=== PATIENT | male | born 1995 | race Native Hawaiian/Other Pacific Islander ===

== ENCOUNTER 2016-09-23 11:51 | Emergency (ER) | payer OTHER ==
[~2016-09-23] VITALS: Ht 182.9 cm; Wt 67.3 kg
[2016-09-23 11:53] VITALS: BP 109/69; PULSE 71; RESP 15; O2SAT 100
[2016-09-23 12:41] LABS: BASOPHILS % (AUTO) 0.2 % (0-3); EOSINOPHILS % (AUTO) 1.2 % (0-5); MONOCYTES % (AUTO) 8.5 % (4-12); Mean Corpuscular Hemoglobin 29.7 pg (27.0-35.0); Mean Corpuscular Volume 87.9 fL (81-100); NEUTROPHILS % (AUTO) 79.5 % (40-74); Platelet Count 322 bil/L (150-400)
[2016-09-23 13:05] LABS: Magnesium 2.1 mg/dL (1.6-2.6)
--- NOTE | 2016-09-23 13:48 | ED.REPORT ---
HPI-General Illness Date of Service September 23, 2016 ED Provider: Anders Snider PA-C Farooq is a otherwise healthy 29-year-old male presenting with chief complaint of rib pain. Patient complains of a two-week history of insidious onset pain in his ribs, upper chest, left scapula radiating to his left shoulder. Reports the pain is intermittent, sometimes resolving completely but aggravated by moving, yawning, deep inspiration, lying down. Admits smoking. Denies trauma, fever, unintentional weight loss, cough, wheeze, shortness of breath, abdominal pain, vomiting, diarrhea, melena, hematochezia, urinary symptoms, back pain, limited range of motion the shoulder. Denies family history of heart attack, personal history of heart disease, use of cocaine, methamphetamine, hypertension, diabetes, hyperlipidemia. Nursing Notes Stated Complaint: ABDOMINAL PAIN Chief Complaint: Male Abdominal Pain Nursing Notes Reviewed: Yes Allergies: Coded Allergies: No Known Allergies (Unverified , 09/23/16) Scheduled PRN Cyclobenzaprine (Cyclobenzaprine) 5 Mg Tablet 5-10 MG PO HS PRN PRN Spasm General Time Seen by MD: 13:29 Chief Complaint Other (rib pain) Past Medical History Past Medical History Denies Review of Systems General: Denies fever, chills, malaise. HEENT: Denies congestion, headache, sore throat. Respiratory: Denies dyspnea, cough, shortness of breath, wheezing. Cardiovascular: Denies chest pain, palpitations. Gastrointestinal: Denies vomiting, diarrhea, abdominal pain. Genitourinary: Denies frequency, urgency, dysuria, hematuria. Otherwise as noted in HPI. Physical Exam General: Well appearing, well developed, well nourished, no acute distress. Chest: Normal to inspection, mild tenderness to palpation over upper ribs ( approximately 4-5) Back: Normal to inspection, mild left CVA tenderness to percussion. Otherwise nontender. Head: Atraumatic, normocephalic. Eyes: No scleral icterus or injection. No discharge. Vision grossly intact. ENT: Voice clear, hearing grossly intact. Respiratory: Regular rate and rhythm. Breath sounds present, clear to auscultation and equal bilaterally in all bartholomew. No respiratory distress. No increased work of breathing, speaks in complete sentences. Cardiovascular: Regular rate and rhythm, without murmur, gallop or rub. No pedal edema. Gastrointestinal: Abdomen flat and non-tender without guarding or rebound. Bowel sounds normoactive. Negative hepatosplenomegaly. Skin: Warm and dry. Neurological: Grossly nonfocal. Psychological: Alert and oriented. Speech appropriate, linear and logical. Behavior appropriate. Vital Signs Vital Signs Date Time Temp Pulse Resp B/P Pulse Ox O2 Delivery O2 Flow Rate FiO2 09/23/16 11:53 36.6 71 15 109/69 100 Room Air Interpretation & Diagnostics Lab Results Interpretation Result Diagram: 09/23/16 1230 09/23/16 1230 Test 09/23/16 12:30 09/23/16 13:50 09/23/16 14:02 White Blood Count 10.7th/mm3 (3.8-10.1) Red Blood Count 4.62mil/mm3 (4.40-5.80) Hemoglobin 13.7g/dL (13.8-17.2) Hematocrit 40.6% (41.0-50.0) Mean Corpuscular Volume 87.9fL (81-100) Mean Corpuscular Hemoglobin 29.7pg (27.0-35.0) Mean Corpuscular Hemoglobin Concent 33.7% (32.0-37.0) Red Cell Distribution Width 12.2% (12.3-15.4) Platelet Count 322bil/L (150-400) Neutrophils (%) (Auto) 79.5% (40-74) Lymphocytes (%) (Auto) 10.2% (14-46) Monocytes (%) (Auto) 8.5% (4-12) Eosinophils (%) (Auto) 1.2% (0-5) Basophils (%) (Auto) 0.2% (0-3) Sodium Level 138mEq/L (134-144) Potassium Level 4.0mEq/L (3.5-5.2) Chloride Level 100mEq/L (97-108) Carbon Dioxide Level 25mmol/L (18-29) Blood Urea Nitrogen 11mg/dL (6-20) Creatinine 0.89mg/dL (0.76-1.27) Estimat Glomerular Filtration Rate 115mL/min (>59) Glucose Level 95mg/dL (60-99) Calcium Level 10.1mg/dL (8.5-10.1) Magnesium Level 2.1mg/dL (1.6-2.6) Total Bilirubin 0.3mg/dL (0.0-1.2) Aspartate Amino Transf (AST/SGOT) 18U/L (0-50) Alanine Aminotransferase (ALT/SGPT) 13U/L (0-44) Alkaline Phosphatase 62U/L (25-150) Total Protein 8.0g/dL (6.4-8.4) Albumin 4.0g/dL (3.4-5.0) Lipase 18U/L (13-60) Hold [place] Top Tube Received (Received) Hold Urine Received (Received) Urine Color Yellow (YELLOW) Urine Appearance Clear (CLEAR,HAZY) Urine pH 6.5 (5.0-8.0) Urine Specific [place] 1.020 (1.003-1.035) Urine Protein Negativemg/dL (NEG,TRACE) Urine Glucose (UA) Negativemg/dL (NEGATIVE) Urine Ketones Negativemg/dL (NEGATIVE) Urine Occult Blood Negative (NEGATIVE) Urine Nitrite Negative (NEGATIVE) Urine Bilirubin Negative (NEGATIVE) Urine Urobilinogen Normalmg/dL (NORMAL) Urine Leukocyte Esterase Negative (NEGATIVE) Urine RBC 0-2/hpf (0-2) Urine WBC 0-5/hpf (0-5) Urine Epithelial Cells Occasional/hpf (NONE-MOD) Urine Crystals None seen (NONE SEEN) Urine Bacteria None/hpf (NONE-FEW) Urine Hyaline Casts None/lpf (NONE) Urine Granular Casts None seen (NONE SEEN) Urine Waxy Casts None seen (NONE SEEN) Urine Red Blood Cell Casts None seen (NONE SEEN) Urine White Blood Cell Casts None seen (NONE SEEN) Urine Mucus None seen (None Seen) Urine Trichomonas None seen (NONE SEEN) Urine Yeast None (NONE SEEN) Urinalysis Comment None Urine Culture Reflexed Not indicated Re-Eval/Medical Decision Med Decision/Clinical Course Otherwise healthy 29-year-old male presents the chief complaint of rib and abdominal pain that began insidiously about 2 weeks ago. Complains of pain in his anterior lower and upper ribs as well as scapula and radiating to his left shoulder. Also complains of a crampy sensation in his left upper quadrant. Pain is aggravated by moving, vomiting, deep inspiration, lying down. Denies other symptoms, pertinent history. Physical examination is benign with clear lung sounds, soft abdomen and some mild tenderness to palpation in the right upper anterior chest. Patient states that this reproduces his pain. Follow it and I see it, the patient's nurse witnessed what appeared to be a muscle spasm in his left upper quadrant abdominal muscles. Mild CVA tenderness to percussion on the left side. CBC and CMP are unremarkable with extremely mild leukocytosis and anemia which I do not find to be clinically pertinent. Lipase is normal. Vital signs are normal. Urinalysis is normal. This is unlikely to be cardiac event as the presentation would be highly atypical, patient is young with a paucity of risk factors. I doubt this is a respiratory issue as pneumonia, PE or pneumothorax as he is saturating well, has no respiratory symptoms. No history to indicate trauma. Physical and Labs are reassuring against pancreatitis, perforation, cholecystitis, pyelonephritis. Urinalysis gives no indication of infection or kidney stone. At this point I am reassured this is unlikely to be caused by immediately dangerous condition and believe this is most likely musculoskeletal. I believe he is stable and safe to be discharged. Advised [id number] analgesia, provided a small amount of cyclobenzaprine to treat muscle spasms at the patient 's request, provided primary care follow-up referral, advised emergent return precautions. Patient verbalizes understanding of and consented to the plan. Discharge & Departure Primary Impression: Left-sided chest wall pain Disposition: Home Discharge Condition All VS Reviewed: Yes Condition: Stable Additional Instructions: Evaluation for rib and abdomen pain in the emergency department consists of history, physical examination, urinalysis and blood work, all of which are reassuring that this is unlikely to be caused by an immediately dangerous condition such as a heart attack, pneumonia or blood clot in your lungs. I believe you are stable and safe to be discharged to home. The pain is best treated with 800 mg of ibuprofen (Advil, Motrin) every 6 hours , or 1000 mg of acetaminophen (Tylenol) every 6 hours. These drugs can be taken at the same time for more severe pain. Emergency prescription for a small amount of cyclobenzaprine to help with the muscle spasms in your abdomen. Do not drive or drink alcohol when taking this medication. I will provide you with a referral for a primary care provider. Please contact them to establish care and follow-up. Return to emergency department for any new or worsening symptoms including increasing or changing chest pain, difficulty breathing or shortness of breath, fever, abdominal pain. Referrals: [facility] EDSupervising Provider for APC: Angel Barber MD copies to: [facility] Anders Snider PA-C September 23, 2016 13:48
[2016-09-23 14:15] LABS: APPEARANCE,URINE CLEAR (CLEAR,HAZY); COLOR,URINE YELLOW (YELLOW); OCCULT BLOOD,URINE NEGATIVE (NEGATIVE); PH,URINE 6.5 (5.0-8.0)
[2016-09-23 14:16] LABS: UROBILINOGEN,URINE NORMAL (NORMAL)
[2016-09-23] MEDS ORDERED: CYCL5TAB PO (14:42)
[2016-09-24] MEDS ORDERED: IBUP800T28 PO (11:29)
[2016-09-24] MEDS ORDERED: AZIT250T4 PO (11:29)
[2016-09-24] MEDS ORDERED: HYDR-4003 PO (11:29)
== END 2016-09-23 14:44 | disposition home or self-care (01) ==
LOC: SED 11:51
DX: R07.89 Other chest pain (principal); F17.200 Nicotine dependence, unspecified, uncomplicated
CPT/HCPCS: 36415; 80053; 81000; 83690; 83735; 85025; 96372; 99284; J1885

== ENCOUNTER 2016-09-24 07:11 | Emergency (ER) | payer OTHER ==
[~2016-09-24] VITALS: Ht 182.9 cm; Wt 67.3 kg
[~2016-09-24 07:11] MED LIST: CYCL5TAB PO
[2016-09-24 07:15] VITALS: BP 141/82; PULSE 122; RESP 24; O2SAT 99
--- NOTE | 2016-09-24 08:16 | ED.REPORT ---
HPI-Chest Pain Under 40 Date of Service September 24, 2016 ED Provider: Blas Begum MD The patient is a 21 year old male who presents to the ED due to intermittent left chest pain over the past 2 weeks and increasing in duration and severity over the past 4 days. The pain starts in left mid-thoracic, moves up into his left chest and radiates into his back. He woke up this morning yelling in pain. Walking brings the pain to a 10/10 and deep breathing exacerbates his symptoms as well. C/o associated chills and diaphoresis. On Thursday he went to a clinic, the doctor told him it was gas. His symptoms have not resolved. Went to [facility] yesterday, all his urine and labs were normal. given muscle spasm. no acute findings Nothing helped his symptoms. He denies fever, cough, asthma, dyspnea, SOB, and LE edema. Nursing Notes Stated Complaint: EXCRUCIATING PAIN IN SIDE Chief Complaint: Chest Pain-Non Cardiac Nature Nursing Notes Reviewed: Yes (Shake, [employer] not reconciled) Allergies: Coded Allergies: No Known Allergies (Unverified , 09/23/16) Scheduled Azithromycin (Zithromax (Z-Hernandez)) 250 Mg Tablet 250 MG PO DIRECTED Take two tablets by mouth on day 1, then take one tablet daily on days 2 through 5. Scheduled PRN Cyclobenzaprine (Cyclobenzaprine) 5 Mg Tablet 5-10 MG PO HS PRN PRN Spasm Hydrocodone-Acetaminophen 5-325 mg (Hydrocodone-Acetaminophen 5-325 mg) 1 Each Tablet 1-2 TABLET PO TID PRN PRN For Pain Ibuprofen (Ibuprofen) 800 Mg Tablet 800 MG PO TID PRN PRN For Pain General Time Seen by MD: 08:01 Chief Complaint Chest pain Hx Obtained From: Patient Arrived By: Walk-in Sudden in Onset?: Yes Onset Occurred: More than a week ago... (2 weeks) Symptom Duration: Since onset Location: : Chest left Quality: Painful Severity: Current: Mild Recent Healthcare: Recent doctor visit Similar Sx Previous: Yes Past Medical History Past Medical History Notes: Patient seen yesterday in emergency department for left-sided chest pain Past Medical History Denies Past Surgical History denies Family History family hx of cancer Smoking History Current Every Day Smoker Social History Other Social History: Good social support, Local resident Ambulatory Status Independent Review of Systems Constitutional: Reports: Chills, Denies: Fever Cardiovascular: Reports: Chest pain GI: Denies: Nausea, Vomiting Musculoskeletal: Reports: Thoracic pain, Denies: Extremity swelling Skin: Reports Diaphoresis Complete sys rev & neg: except as marked. Physical Exam Initial Vital Signs Vital Signs (First) Date Time Temp Pulse Resp B/P Pulse Ox O2 Delivery O2 Flow Rate FiO2 09/24/16 07:15 37.4 122 24 141/82 99 Room Air Initial VS: Reviewed, Vital signs abnormal General/Constitutional: Awake, Alert, Cooperative thin fit Respiratory / Chest: Atraumatic, Breath sounds NL, Breath sounds = bilat, No respiratory distress pleuritic discomfort but lungs are clear no crepitus no zoster Cardiovascular: Heart rate NL, Regular rhythm, Heart sounds NL Abdomen: Soft, Non-tender Lower Extremity / Pelvis / MS: Atraumatic, Full range of motion, No deformity Skin: Warm, Dry Neurologic: Oriented X3, Speech NL, No motor deficits Head / Eyes: Normocephalic, PERRL, EOMI Upper Extremity / MS: Atraumatic, Full range of motion, No deformity Wrist / Hand: Atraumatic, Full range of motion, No deformity Interpretation & Diagnostics Interpretation & Diagnostics: ANGIOGRAPHY CT IMPRESSION: 1. No evidence of pulmonary embolism. 2. Left lower lobe medial consolidation compatible with pneumonia. A dense fluid collection is demonstrated within the consolidated lung suspicious for a small abscess. Consider followup to demonstrate resolution. 3. Small left pleural effusion compatible with a parapneumonic effusion. Dictated by: Marko Solis M.D. on 09/24/2016 at 10:10 Approved by: Marko Solis M.D. on 09/24/2016 at 10:26 Lab Results Interpretation Test 09/24/16 08:45 Hold Purple Top Tube Received (Received) Hold Blue Top Tube Received (Received) Hold [place] Top Tube Received (Received) Hold [place] Top Tube Received (Received) Lab Results Interpretation: blood work from yesterday reviewed, not repeated ECG Interpretation ECG Interpretation: EKG demonstrated normal sinus rhythm at a rate of 94, no ischemic or dysrhythmic changes, no prior EKG available for comparison (tachycardia identified at triage no longer present) Time: 08:16 Interpreted by: ED physician X-Ray Chest Interpretation Chest Xray Interpretation: IMPRESSION: Mild or early retrocardiac left lower lobe pneumonia. Dictated by: Justin Diana M.D. on 09/24/2016 at 8:22 Approved by: Justin Diana M.D. on 09/24/2016 at 8:23 View: Portable Interpretation / Wet Read by: Interpret - Radiologist Re-Eval/Medical Decision Med Decision/Clinical Course This is a previously healthy 21-year-old male presents with several days of worsening left pleuritic chest discomfort. He was seen yesterday in the emergency department, thought they have a chest wall muscle strain, reports symptoms are worsening. Reports pain was more severe. He denies fever cough. He reports a significant pleuritic discomfort. Her trauma, pneumothorax, and no risk factors for PE are evident on this evaluation. She has normal vitals, but does appear uncomfortable. Lungs are clear, no chest x-rays negative for pneumothorax or personal pathology. Severity pain, multiple visits high fevers been seen in urgent care, seen yesterday in her department, at this point CT imaging was pursued and was negative for PE, but is suggestive of a lower lobe infiltrate. The patient's blood work had yesterday revealed no leukocytosis, is young and healthy son not finding indication for blood cultures, but empiric treatment is being started. He received a dose of ceftriaxone and Zithromax. He is being discharged in NSAID, Zithromax and some when necessary hydrocodone. Work note has been provided. Routine and return precautions are reviewed. Patient's discharge in improved condition Source of Hx: Old records Differential Diagnosis: Positive: Chest pain, acute, Pleurisy, Pneumonia, Negative: Acute coronary syndrome, Dysrhythmia, Esophageal rupture, Gun shot wound chest, Siomara-Lugo syndrome, Pneumomediastinum, Pulmonary edema, Stab wound chest, Stable angina Counseled Regarding: Diagnosis, Lab results, Need for follow-up, When/why to return to ED Discharge & Departure Primary Impression: Pneumonia Pneumonia type: due to unspecified organism Laterality: unspecified laterality Lung location: unspecified part of lung Qualified Code: J18.9 - Pneumonia, unspecified organism Disposition: Home Discharge Condition All VS Reviewed: Yes Condition: Stable Additional Instructions: 1. Your CT scan reveals that you have developed a small left lower lobe pneumonia, on a position that is sitting next to the "pleura" - which is where the rich network of nerves are - and that causes this type of "pleuritic" pain which is worse with inspiration. 2. You received an injection of the antibiotic ceftriaxone and an oral dose of the antibiotic azithromycin. 3. You will need to continue a 5 day course of azithromycin as prescribed, with a next dose tomorrow. 4. Continue ibuprofen 800 mg 3 times a day with food for pain. Medicine also helps with the inflammation. It is very important to take. 5. If needed for more severe pain take hydrocodone/APAP 5/325 1-2 tabs up to three times a day. Try to use sparingly. Note: This medication contains Tylenol and a narcotic. It does cause some drowsiness, no driving for at least 4-6 hours after taking. 6. Symptoms should improve and resolve over the next several weeks. Return again if new or worsening symptoms. Referrals: [facility] (PCP) [facility] Scribe Attestation Portion of this note were transcribed by Mer Jackson. I, Dr. Begum, personally performed the history, physical exam, and medical decision-making: I reviewed and confirmed the accuracy for the information in the transcribed note. Signed by: zeus Carlin, 09/24/16 1000 copies to: [facility] Blas Begum MD September 24, 2016 08:16 Mer Jackson September 24, 2016 08:34
--- NOTE | 2016-09-24 08:24 | DRSVH ---
PROCEDURE: X-RAY CHEST, TWO VIEWS ([id number]) INDICATIONS: CHEST PAIN TECHNIQUE: 2 views of the chest were acquired. COMPARISON: None. FINDINGS: Surgical changes and devices: None. Lungs and pleura: No pleural effusions or pneumothorax. Lungs are clear on the right but there is a mild or early pneumonia at the retrocardiac left lower lobe. Mediastinum: Mediastinal contours are normal. Heart size is normal. Bones and chest wall: No suspicious bony abnormalities. Soft tissues appear unremarkable. IMPRESSION: Mild or early retrocardiac left lower lobe pneumonia. Dictated by: Justin Diana M.D. on 09/24/2016 at 8:22 Approved by: Justin Diana M.D. on 09/24/2016 at 8:23
[2016-09-24] MEDS ORDERED: Ondansetron 2 mg/mL 2 mL Inj IVPUSH ONE (08:35)
[2016-09-24] MEDS: HYDROmorphone 0.5 mg/0.5 mL iSecure Syringe IVPUSH PRN ×3 (08:59→12:30)
--- NOTE | 2016-09-24 10:27 | DRSVH ---
PROCEDURE: CT ANGIO CHEST PULMONARY EMBOLISM ([id number]) INDICATIONS: pleuritic CP, tachycardia TECHNIQUE: After the administration of intravenous contrast, 2 mm thick sections acquired from the pulmonary api abilio to the posterior costophrenic angles. 3-dimensional maximum intensity projection (MIP) coronal a nd sagittal reformats were then acquired through the thorax. For radiation dose reduction, the follo wing was used: automated exposure control, adjustment of mA and/or kV according to patient size. COMPARISON: [facility], CR, XR CHEST 2VW, 09/24/2016, 7:37. FINDINGS: Image quality: Excellent. Pulmonary arteries: Pulmonary arteries are normal in size, and demonstrate no intraluminal filling d efects to suggest central pulmonary embolism. Lungs and pleura: There is a small left pleural effusion. Medial consolidation is demonstrated in th e left lower lobe. Within the consolidated lung, there is a rounded dense fluid collection measuring approximately 2.3 x 2.2 cm in transverse dimension Central and peripheral airways are patent. Mediastinum: Heart size is normal, without pericardial effusion. No mediastinal or hilar adenopathy . There is a small amount of residual thymic tissue in the anterior mediastinum. Thoracic aorta is normal in caliber and enhancement. Esophagus is normal in caliber, without hiatal hernia. Bones and chest wall: No suspicious bony lesions. Ribs and thoracic spine appear intact throughout. The visualized thyroid demonstrates no discrete nodules. No axillary or supraclavicular adenopathy . Abdomen: Visualized upper abdominal solid organs appear normal in the early arterial phase of enhanc ement. IMPRESSION: 1. No evidence of pulmonary embolism. 2. Left lower lobe medial consolidation compatible with pneumonia. A dense fluid collection is demo nstrated within the consolidated lung suspicious for a small abscess. Consider followup to demonstra te resolution. 3. Small left pleural effusion compatible with a parapneumonic effusion. Dictated by: Marko Solis M.D. on 09/24/2016 at 10:10 Approved by: Marko Solis M.D. on 09/24/2016 at 10:26
[2016-09-24] MEDS ORDERED: cefTRIAXone Inj 2,000 MG in Dextrose 5% Minibag Plus 50 ML IV ONE (11:15)
[2016-09-24] MEDS ORDERED: IBUP800T28 PO (11:29)
[2016-09-24] MEDS ORDERED: HYDR-4003 PO (11:29)
[2016-09-24] MEDS ORDERED: AZIT250T4 PO (11:29)
[2016-09-24 12:37] VITALS: BP 119/82; PULSE 81; O2SAT 100
== END 2016-09-24 12:47 | disposition home or self-care (01) ==
LOC: SED 07:11
DX: J18.9 Pneumonia, unspecified organism (principal); F17.200 Nicotine dependence, unspecified, uncomplicated
CPT/HCPCS: 71020; 71275; 93005; 96365; 96375; 96376; 99285; J0696; J1170; J1885; J2405; Q9967